=== PATIENT | male | born 1950 | race Caucasian/White ===

== ENCOUNTER 2016-11-04 15:30 | Emergency (ER) | payer MEDICARE ==
--- NOTE | ~2016-11-04 | US85 ---
[facility] A Service of [facility] & [facility] RADIOLOGY TEXT RESULTS PATIENT: BROOKS MAYO LOCATION: SED : 46 UNIT #: [id number] AGE: [address]: Dagoberto Ramírez MD SEX: M ORDER DR: [id number] [place] [id number] E MR#: [id number] Acc #: [id number] NAME: BROOKS MAYO : 1950 SEX: M STUDY DATE/TIME: 11/04/2016 17:47 UNIT: SED ROOM: STUDY DESCRIPTION: [facility] Attending Physician: Dagoberto Ramírez M.D. Ordering Physician: Dagoberto Ramírez M.D. Primary Care Physician: Stewart Doan M.D. MEDICAL IMAGING REPORT This report is preliminary unless electronic signature is present. EXAM Lower extremity ultrasound for DVT on the left, 11/04/2016 INDICATIONS Left leg pain for 3-4 years. No prior history of DVT. Not on blood thinners. Cold feet complaints by the patient. TECHNIQUE Patel-scale, color Doppler and spectral analysis of the left lower extremity was performed. We have no comparisons. FINDINGS The examination is negative. There is no DVT in the left lower extremity. IMPRESSION 1. Negative study. No DVT in the left lower extremity. Dictated by... Néstor Harris M.D. THIS IS AN ELECTRONICALLY VERIFIED REPORT Néstor Harris M.D. at 11/05/2016 11:03 PM DUSTIN/danielle TD: 11/05/2016 04:16 JOB #: [id number] MEDICAL IMAGING REPORT Page 1 of 1
--- NOTE | ~2016-11-04 | CR72 ---
[facility] A Service of [facility] & [facility] RADIOLOGY TEXT RESULTS PATIENT: BROOKS MAYO LOCATION: SED : 46 UNIT #: [id number] AGE: [address]: Dagoberto Ramírez MD SEX: M ORDER DR: [id number] [place] [id number] E MR#: [id number] Acc #: [id number] NAME: BROOKS MAYO : 1950 SEX: M STUDY DATE/TIME: 11/04/2016 16:16 UNIT: SED ROOM: STUDY DESCRIPTION: CR Chest Single View Portable Attending Physician: Dagoberto Ramírez M.D. Ordering Physician: Dagoberot Ramírez M.D. Primary Care Physician: Stewart Doan M.D. MEDICAL IMAGING REPORT This report is preliminary unless electronic signature is present. EXAM Portable chest, 11/04 INDICATIONS Shortness of air and fatigue for 1 year. History of hypertension. FINDINGS AP portable chest was obtained. No comparison. Cardiac and mediastinal contours are within normal limits. There is atherosclerotic disease in the aorta. There is some scarring or atelectasis in the bases. Lungs otherwise are clear. No pneumothorax. IMPRESSION Bibasilar scarring or atelectasis. Otherwise, no active disease. Dictated by... Sam Guerrero Jr., M.D. THIS IS AN ELECTRONICALLY VERIFIED REPORT Sam Guerrero Jr., M.D. at 11/05/2016 8:50 AM EMERITAK/danielle TD: 11/05/2016 00:12 JOB #: [id number] MEDICAL IMAGING REPORT Page 1 of 1
[2016-11-04] MEDS ORDERED: LOSARTAN POTASS50 MG PO (15:34)
[2016-11-04] MEDS ORDERED: ALBUTEROL17 GM INH (15:34)
[2016-11-04 16:19] LABS: BASOPHIL% 0.2 % (0-2.5); EOSINOPHIL# 0.1 X10e3 (0-0.7); EOSINOPHIL% 1.6 % (0.0-7.0); HEMATOCRIT 47.6 % (38.0-50.0); HEMOGLOBIN 16.1 gm/dL (13.0-16.0); LYMPHOCYTE# 3.9 X10e3 (1.0-3.5); LYMPHOCYTE% 43.3 % (17.0-45.0); MEAN CORPUSCULAR HGB CONC 33.9 g/dL (30-36); MEAN PLATELET VOLUME 8.6 FL (6.5-11.5); MONOCYTE# 0.8 X10e3 (0-1.0); MONOCYTE% 8.7 % (3.0-12.0); NEUTROPHIL# 4.1 X10e3 (1.5-7.1); NEUTROPHIL% 46.2 % (40-75); PLATELET COUNT 301 X10e3 (140-420); RED BLOOD COUNT 4.49 X10e (3.90-5.60); RED CELL DISTRIBUTION WIDTH 13.2 % (11.0-15.5)
[2016-11-04 16:22] LABS: DIFF IND NO
[2016-11-04 16:48] LABS: ALKALINE PHOSPHATASE 46 U/L (32-92); ALT (SGPT) 66 U/L (10-40); AST (SGOT) 85 U/L (10-42); BILIRUBIN,TOTAL 0.3 mg/dL (0.2-2.0); BLOOD UREA NITROGEN 6 mg/dL (9-23); BUN/CREATININE RATIO 6.66; CALCIUM SERUM 9.1 mg/dL (8.4-10.2); CARBON DIOXIDE 25 mmol/L (22-31); CHLORIDE 107 mmol/L (100-111); CREATININE SERUM 0.9 mg/dL (0.6-1.4); GLOM FILT RATE Estimated 87.5 mL/min (>60); GLUCOSE FASTING 100 mg/dL (70-110); POTASSIUM 4.8 mmol/L (3.5-5.1); PROTEIN TOTAL SERUM 7.1 g/dL (6.0-8.3); SODIUM 141 mmol/L (135-145)
[2016-11-04 16:54] LABS: BILIRUBIN, DIRECT <0.1 mg/dL (0.0-0.2); BILIRUBIN,INDIRECT 0.2 mg/dL (0.0-0.9)
[2016-11-04 17:41] LABS: URINE SOURCE CLEAN CATCH
[2016-11-04 17:43] LABS: URINE APPEARANCE CLEAR; URINE BILIRUBIN NEG (NEG); URINE BLOOD NEG (NEG); URINE COLOR YELLOW; URINE GLUCOSE NEG (NORM); URINE KETONE NEG (NEG); URINE LEUKOCYTE ESTERASE NEG (NEG); URINE NITRATE NEG (NEG); URINE PH 5.5 (5-8); URINE PROTEIN NEG (NEG); URINE UROBILINOGEN 0.2 MG/DL (NORM)
[2016-11-04 17:46] LABS: MICRO INDICATED? NO
== END 2016-11-04 18:54 | disposition home or self-care (01) ==
LOC: SED 15:30
PROVIDERS: Emergency Medicine
DX: I73.9 Peripheral vascular disease, unspecified (principal); J44.9 Chronic obstructive pulmonary disease, unspecified; F10.129 Alcohol abuse with intoxication, unspecified; I10 Essential (primary) hypertension; F17.210 Nicotine dependence, cigarettes, uncomplicated; Z79.899 Other long term (current) drug therapy
CPT/HCPCS: 36415; 71010; 80048; 80076; 81003; 83880; 85025; 93971; 94640; 96374; 96375; 99284; G0480; J1885; J2930